=== PATIENT | male | born 1985 | race Caucasian/White ===

== ENCOUNTER 2020-10-07 18:23 | Emergency (ER) | payer MEDICAID, OTHER ==
[~2020-10-07] VITALS: Ht 172.7 cm; Wt 78.2 kg
[~2020-10-07 18:23] MED LIST: NO HOME MEDS
[2020-10-07 18:27] VITALS: BP 128/85
== END 2020-10-07 19:05 | disposition left against medical advice (07) ==
LOC: ER 18:25
DX: R21 Rash and other nonspecific skin eruption (principal); Z53.21 Procedure and treatment not carried out due to patient leaving prior to being seen by health care provider